=== PATIENT | male | born 1965 | race Caucasian/White ===

== ENCOUNTER 2017-02-19 18:16 | Emergency (ER) | END 2017-02-19 22:04 | disposition home or self-care (01) ==

== ENCOUNTER 2017-02-22 20:15 | Emergency (ER) | END 2017-02-23 01:08 | disposition left against medical advice (07) ==

== ENCOUNTER 2017-02-23 09:16 | Emergency (ER) | END 2017-02-23 12:48 | disposition home or self-care (01) ==

== ENCOUNTER 2017-02-25 15:01 | Emergency (ER) | END 2017-02-25 15:44 | disposition home or self-care (01) ==